=== PATIENT | female | born 1950 | race Caucasian/White ===

== ENCOUNTER 2018-05-27 09:17 | Emergency (ER) | payer OTHER ==
[~2018-05-27] VITALS: Ht 160 cm; Wt 59.0 kg
[2018-05-27] MEDS ORDERED: HYDR12.529 PO (09:34)
[2018-05-27] MEDS ORDERED: MORPHINE SULFATE 4 MG/ML CPJ (NOT FOR IM USE) IV STA (09:47)
[2018-05-27] MEDS ORDERED: ONDANSETRON HCL 4MG/2ML INJ IV STA (09:47)
[2018-05-27] MEDS ORDERED: IBUPROFEN 400MG TABLET PO ONE (12:30)
[2018-05-27 13:32] VITALS: BP 123/63
== END 2018-05-27 13:37 | disposition home or self-care (01) ==
LOC: ER 09:17
DX: M54.2 Cervicalgia (principal); M54.89 Other dorsalgia; R07.89 Other chest pain; M25.511 Pain in right shoulder; M25.562 Pain in left knee; R51 Headache; I10 Essential (primary) hypertension; V47.5XXA Car driver injured in collision with fixed or stationary object in traffic accident, initial encounter; Y93.89 Activity, other specified; Y92.414 Local residential or business street as the place of occurrence of the external cause
CPT/HCPCS: 70450; 72125; 72128; 72131; 73030; 73562; 96374; 96375; 99284; J2270; J2405

== ENCOUNTER 2025-03-21 20:57 | Emergency (ER) | payer OTHER, MEDICAID ==
[~2025-03-21] VITALS: Ht 160 cm; Wt 46.0 kg
[~2025-03-21 20:57] MED LIST: HYDR12.529 PO
[2025-03-21 21:05] VITALS: O2SAT 98
[2025-03-21 21:25] VITALS: TEMP 37.8
[2025-03-21] MEDS: SODIUM CHLORIDE 0.9% 1,000 ML IV ONE (23:19)
[2025-03-22 00:42] LABS: HEMATOCRIT. 22.1 % (36.0-48.0); HEMOGLOBIN. 7.4 g/dL (12.0-16.0); MEAN PLATELET VOLUME 6.9 fl (7.4-10.4); PLATELET 232 x1000/uL (130-400); RED BLOOD CELL COUNT 2.63 mill/uL (4.2-5.4); RED CELL DISTRIBUTION WIDTH 17.6 % (11.6-14.6)
[2025-03-22 00:57] LABS: CREATININE 0.7 mg/dL (0.6-1.0); ETHANOL BLOOD < 10 mg/dL (<10); UREA NITROGEN BLOOD 14 mg/dL (9-23)
[2025-03-22 00:58] LABS: TROPONIN I HIGH SENSITIVITY < 4 ng/L (3.0-34)
[2025-03-22] MEDS ORDERED: PIPERACILLIN/TAZO 3.375G/50ML 50 ML IV ONE (01:45)
[2025-03-22] MEDS ORDERED: VANCOMYCIN 1G PREMIX 200 ML IV ONE (01:45)
[2025-03-22] MEDS: SODIUM CHLORIDE 0.9% (SEPSIS BOLUS) IV ONE (02:25)
[2025-03-22 02:37] VITALS: BP 106/51; PULSE 76; RESP 22; O2SAT 100
[2025-03-22 03:14] LABS: BAND% 3.0 % (1.0-6.0); LYMPHOCYTES % MANUAL 48.0 % (20.0-60.0); MONOCYTES % MANUAL 39.0 % (2.0-8.0); NEUTROPHILS % MANUAL 10.0 % (45.0-75.0); PLATELET ESTIMATE NORMAL
== END 2025-03-22 03:23 | disposition short-term general hospital (02) ==
LOC: ER 20:57 → EDBEDREQ 22:06 → ER 03-22 03:23
DX: A41.9 Sepsis, unspecified organism (principal); C25.9 Malignant neoplasm of pancreas, unspecified; I10 Essential (primary) hypertension; D70.9 Neutropenia, unspecified; R50.81 Fever presenting with conditions classified elsewhere; Z90.710 Acquired absence of both cervix and uterus; Z79.899 Other long term (current) drug therapy
CPT/HCPCS: 36415; 70450; 96360; 99291; 80048; 80320; 83605; 85025; 87040; 84484; 96361; J7030 ×2; J2543; G0480